=== PATIENT | female | born 1980 | race Hispanic/Latino ===

== ENCOUNTER → 2018-09-17 | Outpatient (CLI) | payer OTHER ==
[2018-09-17 10:24] LABS: ALBUMIN 3.8 g/dL (3.5-5.0); BILIRUBIN,DIRECT 0.1 mg/dL (0.0-0.3); BILIRUBIN,TOTAL 0.3 mg/dL (0.2-1.0); CREATININE 0.7 mg/dL (0.5-1.5); POTASSIUM 5.1 mmol/L (3.5-5.1); TOTAL PROTEIN, SERUM 7.7 g/dL (6.0-8.3)
[2018-09-17 10:48] LABS: BASOPHILS % (AUTO) 0.4 % (0.0-5.0); EOSINOPHILS % (AUTO) 1.4 % (0.0-8.0); HEMATOCRIT 41.8 % (36-48); LYMPHOCYTES % (AUTO) 34.7 % (21.0-51.0); MEAN CORPUSCULAR HEMOGLOBIN 29.6 pg (27.0-33.0); MEAN CORPUSCULAR HGB CONC 33.3 g/dL (32.0-36.0); MEAN CORPUSCULAR VOLUME 88.8 fL (79-99); MONOCYTES % (AUTO) 6.1 % (3.0-13.0); NEUTROPHILS % (AUTO) 57.4 % (40.0-77.0); PLATELET COUNT (AUTO) 351 K/uL (130-400); WHITE BLOOD COUNT (AUTO) 6.4 K/uL (4.8-10.8)
== END | disposition home or self-care (01) ==
LOC: LAB 09:16
PROVIDERS: ATTEND Family Medicine
DX: Z00.00 Encounter for general adult medical examination without abnormal findings (principal)
CPT/HCPCS: 36415; 80048; 80061; 80076; 85025

== ENCOUNTER → 2019-08-30 | Outpatient (CLI) | payer OTHER ==
[2019-08-30 09:31] LABS: BASOPHILS % (AUTO) 0.6 % (0.0-5.0); EOSINOPHILS % (AUTO) 0.8 % (0.0-8.0); LYMPHOCYTES % (AUTO) 29.9 % (21.0-51.0); MEAN CORPUSCULAR HEMOGLOBIN 29.3 pg (27.0-33.0); MEAN CORPUSCULAR HGB CONC 33.1 g/dL (32.0-36.0); MEAN CORPUSCULAR VOLUME 88.6 fL (79-99); MONOCYTES % (AUTO) 5.7 % (3.0-13.0); NEUTROPHILS % (AUTO) 62.7 % (40.0-77.0); PLATELET COUNT (AUTO) 320 K/uL (130-400); RED CELL DISTRIBUTION WIDTH 11.9 % (11.0-15.5); WHITE BLOOD COUNT (AUTO) 6.3 K/uL (4.8-10.8)
[2019-08-30 09:33] LABS: APPEARANCE,URINE Clear (CLEAR); BILIRUBIN,URINE Negative (NEGATIVE); COLOR,URINE Yellow (YELLOW); GLUCOSE, URINE (UA) Negative (NEGATIVE); KETONES,URINE Negative (NEGATIVE); LEUKOCYTE ESTERASE ,URINE Trace (NEGATIVE); NITRATE,URINE Negative (NEGATIVE); OCCULT BLOOD,URINE Negative (NEGATIVE); PH,URINE 5.5 (5.0-8.0); PROTEIN,URINE Negative (NEGATIVE); UROBILINOGEN,URINE 0.2 mg/dL (0.2-1.0)
[2019-08-30 09:46] LABS: BACTERIA,URINE Rare /HPF (None Seen); RBC,URINE 0-1 /HPF (0-1); SQUAMOUS EPITHELIAL CELL,UR Rare /HPF (0-2); WBC,URINE 0-1 /HPF (0-1)
[2019-08-30 09:53] LABS: ALBUMIN 3.6 g/dL (3.5-5.0); BILIRUBIN,TOTAL 0.3 mg/dL (0.2-1.0); CREATININE 0.8 mg/dL (0.5-1.5); POTASSIUM 4.3 mmol/L (3.5-5.1); THYROID STIMULATING HORMONE 0.97 uIU/mL (0.36-3.74); TOTAL PROTEIN, SERUM 7.6 g/dL (6.0-8.3)
[2019-08-30 10:33] LABS: ERYTHROCYTE SEDIMENTATION RATE 25 MM/HR (0-20)
== END | disposition home or self-care (01) ==
LOC: LAB 09:01
PROVIDERS: ATTEND Nurse Practitioner Family
DX: K21.9 Gastro-esophageal reflux disease without esophagitis (principal); R10.9 Unspecified abdominal pain
CPT/HCPCS: 36415; 80053; 80061; 81001; 82150; 82306; 83013; 83690; 84439; 84443; 85025; 85651

== ENCOUNTER 2021-08-17 13:36 | Emergency (ER) | payer OTHER ==
[~2021-08-17] VITALS: Ht 154.9 cm; Wt 74.4 kg
[2021-08-17] MEDS ORDERED: D-ME118S47 PO (15:32)
[2021-08-17] MEDS ORDERED: IBUP-2070 PO (15:32)
[2021-08-17] MEDS ORDERED: OSEL75 PO (15:32)
[2021-08-17] MEDS ORDERED: ACET-3194 PO (15:32)
[2021-08-17 16:20] VITALS: BP 132/88
== END 2021-08-17 16:14 | disposition home or self-care (01) ==
LOC: EDH 13:36
DX: J10.1 Influenza due to other identified influenza virus with other respiratory manifestations (principal); Z20.822 Contact with and (suspected) exposure to COVID-19; Z79.1 Long term (current) use of non-steroidal anti-inflammatories (NSAID)
CPT/HCPCS: 87635; 87804 ×2; 99283; C9803

== ENCOUNTER → 2022-02-11 | Outpatient (CLI) | payer OTHER ==
[~2022-02-11] MED LIST: ACET-3194 PO; D-ME118S47 PO; IBUP-2070 PO; OSEL75 PO
[2022-02-11 10:49] LABS: APPEARANCE,URINE Clear (CLEAR); BILIRUBIN,URINE Negative (NEGATIVE); COLOR,URINE Yellow (YELLOW); GLUCOSE, URINE (UA) Negative (NEGATIVE); KETONES,URINE Negative (NEGATIVE); LEUKOCYTE ESTERASE ,URINE Negative (NEGATIVE); NITRATE,URINE Negative (NEGATIVE); OCCULT BLOOD,URINE Trace (NEGATIVE); PROTEIN,URINE Negative (NEGATIVE); UROBILINOGEN,URINE 0.2 mg/dL (0.2-1.0)
[2022-02-11 11:00] LABS: BASOPHILS % (AUTO) 0.5 % (0.0-5.0); EOSINOPHILS % (AUTO) 1.7 % (0.0-8.0); HEMATOCRIT 40.6 % (36-48); LYMPHOCYTES % (AUTO) 30.4 % (21.0-51.0); MEAN CORPUSCULAR HEMOGLOBIN 29.7 pg (27.0-33.0); MEAN CORPUSCULAR HGB CONC 33.5 g/dL (32.0-36.0); MEAN CORPUSCULAR VOLUME 88.6 fL (79-99); MONOCYTES % (AUTO) 5.9 % (3.0-13.0); NEUTROPHILS % (AUTO) 61.2 % (40.0-77.0); PLATELET COUNT (AUTO) 337 K/uL (130-400); RED BLOOD CELL COUNT(AUTO) 4.58 MIL/uL (4.00-5.50); RED CELL DISTRIBUTION WIDTH 12.3 % (11.0-15.5); WHITE BLOOD COUNT (AUTO) 6.5 K/uL (4.8-10.8)
[2022-02-11 11:01] LABS: BACTERIA,URINE Rare /HPF (None Seen); RBC,URINE 0-1 /HPF (0-1); SQUAMOUS EPITHELIAL CELL,UR Rare /HPF (0-2); WBC,URINE 0-1 /HPF (0-1)
[2022-02-11 11:08] LABS: HEMOGLOBIN A1C 5.5 % (4.0-6.0)
[2022-02-11 11:43] LABS: ALBUMIN 3.5 g/dL (3.5-5.0); BILIRUBIN,TOTAL 0.3 mg/dL (0.2-1.0); CREATININE 0.7 mg/dL (0.5-1.5); THYROID STIMULATING HORMONE 0.73 uIU/mL (0.36-3.74); TOTAL PROTEIN, SERUM 7.1 g/dL (6.0-8.3)
[2022-02-11 11:58] LABS: ERYTHROCYTE SEDIMENTATION RATE 10 MM/HR (0-20)
== END | disposition home or self-care (01) ==
LOC: LAB 09:15
PROVIDERS: ATTEND Nurse Practitioner Family
DX: R63.5 Abnormal weight gain (principal); R53.82 Chronic fatigue, unspecified; N95.1 Menopausal and female climacteric states; Z13.220 Encounter for screening for lipoid disorders; Z13.21 Encounter for screening for nutritional disorder; Z13.29 Encounter for screening for other suspected endocrine disorder; Z13.0 Encounter for screening for diseases of the blood and blood-forming organs and certain disorders involving the immune mechanism
CPT/HCPCS: 36415; 80053; 80061; 81001; 82043; 82306; 82533; 82607; 82626; 82670; 82672; 82677; 82679; 83001; 83002; 83036; 83789; 84144; 84207; 84255; 84270; 84402; 84439; 84443; 84479; 84481; 84482; 84630; 85025; 85651; 86376; 86800

== ENCOUNTER 2022-12-03 10:06 | Emergency (ER) | payer OTHER ==
[~2022-12-03] VITALS: Ht 154.9 cm; Wt 76.2 kg
[2022-12-03 10:35] LABS: BASOPHILS % (AUTO) 0.4 % (0.0-5.0); EOSINOPHILS % (AUTO) 1.2 % (0.0-8.0); HEMATOCRIT 42.3 % (36-48); LYMPHOCYTES % (AUTO) 29.1 % (21.0-51.0); MEAN CORPUSCULAR HEMOGLOBIN 29.9 pg (27.0-33.0); MEAN CORPUSCULAR HGB CONC 33.6 g/dL (32.0-36.0); MEAN CORPUSCULAR VOLUME 89.1 fL (79-99); MONOCYTES % (AUTO) 5.9 % (3.0-13.0); NEUTROPHILS % (AUTO) 62.9 % (40.0-77.0); PLATELET COUNT (AUTO) 344 K/uL (130-400); RED BLOOD CELL COUNT(AUTO) 4.75 MIL/uL (4.00-5.50); RED CELL DISTRIBUTION WIDTH 11.9 % (11.0-15.5); WHITE BLOOD COUNT (AUTO) 7.5 K/uL (4.8-10.8)
[2022-12-03 10:39] LABS: APPEARANCE,URINE CLEAR (CLEAR); BILIRUBIN,URINE NEGATIVE (NEGATIVE); COLOR,URINE COLORLESS (YELLOW); GLUCOSE, URINE (UA) NEGATIVE (NEGATIVE); KETONES,URINE NEGATIVE (NEGATIVE); LEUKOCYTE ESTERASE ,URINE NEGATIVE Leu/uL (NEGATIVE); NITRATE,URINE NEGATIVE (NEGATIVE); OCCULT BLOOD,URINE NEGATIVE (NEGATIVE); PH,URINE 5.5 (5.0-8.0); PROTEIN,URINE NEGATIVE (NEGATIVE); UROBILINOGEN,URINE 0.2 mg/dL (0.2-1.0)
[2022-12-03 10:47] LABS: CREATININE 0.7 mg/dL (0.5-1.5); POTASSIUM 4.4 mmol/L (3.5-5.1)
[2022-12-03 10:52] LABS: ALBUMIN 3.9 g/dL (3.5-5.0); TOTAL PROTEIN, SERUM 7.7 g/dL (6.0-8.3)
[2022-12-03] MEDS ORDERED: MECLIZINE HCL 25 MG TABLET PO ONE (11:30)
[2022-12-03] MEDS ORDERED: MECL-160 PO (12:42)
[2022-12-03 12:56] VITALS: BP 116/71
== END 2022-12-03 13:00 | disposition home or self-care (01) ==
LOC: EDH 10:06
DX: R42 Dizziness and giddiness (principal); R11.0 Nausea; Z79.899 Other long term (current) drug therapy
CPT/HCPCS: 36415; 70450; 70486; 80053; 81003; 85025; 93005

== ENCOUNTER → 2023-04-15 | Outpatient (CLI) | payer OTHER ==
[~2023-04-15] MED LIST changes: +MECL-160 PO
== END | disposition home or self-care (01) ==
LOC: RAH 10:28
PROVIDERS: ATTEND Obstetrics & Gynecology
DX: Z12.31 Encounter for screening mammogram for malignant neoplasm of breast (principal)
CPT/HCPCS: 77067

== ENCOUNTER → 2023-07-31 | Outpatient (CLI) | payer OTHER ==
[~2023-07-31] MED LIST changes: +BROM118S48 PO; -D-ME118S47 PO; -MECL-160 PO; +MECL-302 PO
[2023-07-31 09:58] LABS: BASOPHILS # (AUTO) 0.03 K/uL (0.00-0.20); BASOPHILS % (AUTO) 0.4 % (0.0-5.0); EOSINOPHILS # (AUTO) 0.04 K/uL (0.00-0.70); EOSINOPHILS % (AUTO) 0.6 % (0.0-8.0); HEMATOCRIT 44.5 % (36-48); IMMATURE GRANULOCYTE ABSOLUTE 0.03 K/uL (0-1); LYMPHOCYTES # (AUTO) 1.9 K/uL (1.0-4.8); LYMPHOCYTES % (AUTO) 27.4 % (21.0-51.0); MEAN CORPUSCULAR HEMOGLOBIN 29.6 pg (27.0-33.0); MEAN CORPUSCULAR HGB CONC 32.8 g/dL (32.0-36.0); MEAN CORPUSCULAR VOLUME 90.1 fL (79-99); MONOCYTES # (AUTO) 0.4 K/uL (0.1-1.0); NEUTROPHILS # (AUTO) 4.6 K/uL (1.8-7.7); NEUTROPHILS % (AUTO) 66.2 % (40.0-77.0); PLATELET COUNT (AUTO) 355 K/uL (130-400); RED BLOOD CELL COUNT(AUTO) 4.94 MIL/uL (4.00-5.50); RED CELL DISTRIBUTION WIDTH 12.3 % (11.0-15.5)
[2023-07-31 10:02] LABS: HEMOGLOBIN A1C 5.2 % (4.0-6.0)
[2023-07-31 10:24] LABS: APPEARANCE,URINE CLEAR (CLEAR); BILIRUBIN,URINE NEGATIVE (NEGATIVE); COLOR,URINE LIGHT-YELLOW (YELLOW); GLUCOSE, URINE (UA) NEGATIVE (NEGATIVE); KETONES,URINE NEGATIVE (NEGATIVE); LEUKOCYTE ESTERASE ,URINE NEGATIVE Leu/uL (NEGATIVE); NITRATE,URINE NEGATIVE (NEGATIVE); OCCULT BLOOD,URINE NEGATIVE (NEGATIVE); PROTEIN,URINE NEGATIVE (NEGATIVE); UROBILINOGEN,URINE 0.2 mg/dL (0.2-1.0)
[2023-07-31 10:27] LABS: ALBUMIN 3.8 g/dL (3.5-5.0); BILIRUBIN,TOTAL 0.4 mg/dL (0.2-1.0); CREATININE 0.6 mg/dL (0.5-1.5); THYROID STIMULATING HORMONE 0.72 uIU/mL (0.36-3.74); TOTAL PROTEIN, SERUM 7.6 g/dL (6.0-8.3)
[2023-07-31 10:30] LABS: ADD UA MICROSCOPIC NO
[2023-07-31 11:01] LABS: ERYTHROCYTE SEDIMENTATION RATE 17 MM/HR (0-20)
[2023-08-01 08:13] LABS: INSULIN, RANDOM OR FASTING 16.4 uIU/mL (2.6-24.9)
== END | disposition home or self-care (01) ==
LOC: LAB 08:16
PROVIDERS: ATTEND Nurse Practitioner Family
DX: Z13.220 Encounter for screening for lipoid disorders (principal); Z13.29 Encounter for screening for other suspected endocrine disorder; N92.6 Irregular menstruation, unspecified; K21.9 Gastro-esophageal reflux disease without esophagitis; R53.82 Chronic fatigue, unspecified; E66.01 Morbid (severe) obesity due to excess calories
CPT/HCPCS: 36415; 80053; 80061; 81003; 82306; 83036; 83525; 83789; 84255; 84439; 84443; 84479; 84481; 84482; 84630; 85025; 85651; 86376; 86800

== ENCOUNTER → 2023-09-11 | Outpatient (CLI) | payer OTHER | END | disposition home or self-care (01) | LOC: LAB 09-10 13:20 | PROVIDERS: ATTEND Nurse Practitioner Family | DX: N92.6 Irregular menstruation, unspecified (principal); R53.82 Chronic fatigue, unspecified; R68.82 Decreased libido; R63.5 Abnormal weight gain | CPT/HCPCS: 36415; 82533; 82627; 82670; 82672; 82677; 82679; 83001; 83002; 84144; 84270; 84402; 84403 ==

== ENCOUNTER 2024-06-27 09:54 | Emergency (ER) | payer OTHER ==
[~2024-06-27] VITALS: Ht 154.9 cm; Wt 84.8 kg
[~2024-06-27 09:54] MED LIST changes: +AMOX-427 PO; +PRED20TA3 PO
[2024-06-27] MEDS ORDERED: CLIN-141 PO (10:45)
[2024-06-27] MEDS ORDERED: KETO10TA2 PO (10:45)
--- NOTE | 2024-06-27 10:49 | ERN ---
General Chief Complaint: Earache Stated Complaint: LEFT EAR PAIN Time Seen by MD: 09:54 Time Seen by Midlevel: 09:54 Source: patient History of Present Illness Initial Comments Patient is a 44-year-old female with no significant past medical history presenting with left external ear swelling and pain. Patient was seen in our emergency department two days ago and diagnosed with otitis externa. She was discharged home with Augmentin and prednisolone with little to no relief. Patie nt states she was already taken 48 hours of antibiotics with no improvement in her symptoms. She continues to have pain to her left ear that has now radiated to her left jaw. She specifically denies any hearing loss, fever, chills, difficulty swallowing, or any other symptoms at this time. Allergies: Coded Allergies: No Known Allergies (Unverified Allergy, Unknown, 08/17/21) Home Meds Active Scripts Ketorolac Tromethamine (Ketorolac Tromethamine) 10 Mg Tablet, 10 MG PO BID for 5 Days, #10 TAB Prov:PASCALE ABDI 06/27/24 Clindamycin HCl (Clindamycin HCl) 300 Mg Capsule, 1 CAP PO BID for 10 Days, #20 CAP 0 Refills Prov:PASCALE ABDI 06/27/24 Prednisone (Prednisone) 20 Mg Tablet, 20 MG PO DAILY for 5 Days, #5 TAB Prov:BLU HERNANDEZ MD 06/25/24 Amoxicillin/Potassium Clav (Augmentin Xr 1,000-62.5 Tab) 1,000 Mg-62.5 Mg Tab.er.12h, 1 TAB PO BID for 7 Days, #14 TAB 0 Refills with food Prov:BLU HERNANDEZ MD 06/25/24 Meclizine HCl (Meclizine HCl) 25 Mg Tablet, 25 MG PO TID for dizziness, #20 TAB Prov:GHULAM WESTON MD 12/03/22 Oseltamivir Phosphate (Tamiflu) 75 Mg Cap, 75 MG PO BID for 5 Days, #10 CAP Prov:MARIE GIL 08/17/21 D-Methorphan Hb/P-Epd HCl/Bpm (Bromfed Dm Cough Syrup) 118 Ml Syrup, 10 ML PO TID for 5 Days, #150 ML Prov:MARIE GIL 08/17/21 Ibuprofen (Ibuprofen) 600 Mg Tablet, 600 MG PO Q6H PRN for PAIN, #15 TAB Prov:MARIE GIL 08/17/21 Acetaminophen (Acetaminophen) 650 Mg Tablet.er, 650 MG PO Q4H for 5 Days, #15 TAB Prov:MARIE GIL 08/17/21 Past Medical History Past Medical History: No Pertinent History Past Surgical History: None Social History Social History: Negative ROS Dictation CONSTITUTIONAL: Negative except for HPI HEAD/FACE: Negative except for HPI EENT: Negative except for HPI RESPIRATORY: Negative except for HPI GASTROINTESTINAL/ABDOMINAL: Negative except for HPI GENITOURINARY: Negative except for HPI MUSCULOSKELETAL: Negative except for HPI INTEGUMENTARY: Negative except for HPI NEUROLOGICAL/PSYCH: Negative except for HPI HEMATOLOGIC/LYMPHATIC: Negative except for HPI All Systems Negative, Except as noted above. 13 point review of systems assessed and all negative except for above. Physical Exam Physical Exam Dictation Vital Signs reviewed General Appearance: Alert, oriented x 3, no acute distress, well developed, nourished. Head and Face: non-traumatic. Eyes: PERRL, pink conjunctivas, eyelid no trauma, anterior chamber with arcus senilis. Ears: swelling to the helix portion of the ear however her external ear canal and tympanic membrane are unremarkable. There are no signs of otitis media and otitis externa. There is one lymph node swollen to the left anterior cervical chain. It appears patient may be developing a cellulitis to the external left ear Nose: No discharge, no bleeding. Oropharynx: Mouth normal, tongue pink, pharynx clear,no erythema, tonsils no exudates, no abscesses noted, mucous membrane moist Neck: Supple, non-tender, no thyromegaly, no masses, no JVD, no bruits Breast:Deferred Chest:No tenderness, no crepitus, no paradoxical movement, no retractions Lungs:Clear, well-ventilated, symmetric, no rales, no wheezing, no rhonchi, no stridor, good breath sounds bilaterally Heart: Regular rate, regular rhythm, no murmur, no gallops Vascular: no peripheral edema, Abdomen: Soft, positive bowel sounds, nondistended, no guarding, nontender, no rebound, no masses no hepatomegaly, no splenomegaly, no Hanks's sign, no hernias. Rectal: Deferred Genital: Deferred Neurological: Normal speech, motor function intact, sensory function intact Musculoskeletal: Neck nontender, full range of motion, back nontender, full range of motion, Extremities: nontender, full range of motion Skin: Color pink, dry, no turgor, no rash, no lacerations, no abrasions, no con tusions. Lymphatic: Deferred MDM MDM: Patient is a 44-year-old female with no significant past medical history presenting with left external ear swelling and pain. Patient was seen in our emergency department two days ago and diagnosed with otitis externa. She was discharged home with Augmentin and prednisolone with little to no relief. Patient states she was already taken 48 hours of antibiotics with no improvement in her symptoms. She continues to have pain to her left ear that has now radiated to her left jaw. She specifically denies any hearing loss, fever, chills, difficulty swallowing, or any other symptoms at this time. On physical examination patient has swelling to the helix portion of the ear however her external ear canal and tympanic membrane are unremarkable. There are no signs of otitis media and otitis externa. There is one lymph node swollen to the left anterior cervical chain. It appears patient may be developing a cellulitis to the external left ear. Antibiotic will be changed to clindamycin. Patient was advised to follow up with ENT for symptoms do not improve or return to the ER fo r further evaluation. Patient is agreeable with this plan and all questions have been answered. Differential diagnosis: Otitis media, otitis externa, cellulitis There are no social concerns with this patient. Prescription drug management Prescriptions will include: Clindamycin and ketorolac Medical management and examination interpretation discussions were had by me with other qualified healthcare professionals as indicated for the patient's care. ED Course Orders Procedure Category Date Status Time Ceftriaxone 1g Vial PHA 06/27/24 Complete (Rocephine 1g Inj) 10:30 Current Medications Medications (Trade) Dose Ordered Sig/[place] Route PRN Reason Start Time Stop Time Status Last Admin Dose Admin Ceftriaxone Sodium (ROCEphine 1G INJ) 1 gm ONCE ONCE IM 06/27/24 10:30 06/27/24 10:31 DC Vital Signs Date Time Temp Pulse Resp B/P (MAP) Pulse Ox O2 Delivery O2 Flow Rate FiO2 06/27/24 09:54 99.1 79 16 112/8 96 Room Air DX & DISP Disposition: Discharge Departure Impression: Primary Impression: Swelling of left external ear Additional Impression: Cellulitis of external ear Condition: Stable Scripts Ketorolac Tromethamine (Ketorolac Tromethamine) 10 Mg Tablet 10 MG PO BID for 5 Days, #10 TAB Prov: PASCALE ABDI 06/27/24 Clindamycin HCl (Clindamycin HCl) 300 Mg Capsule 1 CAP PO BID for 10 Days, #20 CAP 0 Refills Prov: PASCALE ABDI 06/27/24 Additional Instructions: Your physical exam is remarkable for swelling to the external left ear. This may be related to your recent change in piercing. It also appears your lymph nodes are reactive most likely to an infection. I will give you a prescription for clindamycin and ketorolac for pain. Her symptoms do not improve after this round of antibiotics he will need to see an ENT specialist. I have given you a referral to Dr. Lozano. You may finish the steroids you were previously prescribed. This should improve your swelling. If you develop any new or worsening symptoms please report to the ER for further evaluation. Referrals: JESSICA STUART (PCP) KENZIE LOZANO III, MD Time of Disposition: 10:44 I have reviewed the case, and I agree with, Diagnosis and Plan I performed the substantive portion of the visit. I have reviewed and personally made and approve the management plan that is documented in the note by myself or the CM. I acknowledge for responsibility for the patient's m anagement plan. PASCALE ABDI Jun 27, 2024 10:49
[2024-06-27] MEDS: cefTRIAXone 1G VIAL IM ONE (11:07)
[2024-06-27 11:09] VITALS: BP 115/79; PULSE 78; RESP 16; TEMP 99.1; O2SAT 97
[2024-06-27] MEDS: LIDOCAINE HCL 1% 20 ML VIAL ONE (11:27)
== END 2024-06-27 11:32 | disposition home or self-care (01) ==
LOC: EDH 09:54
DX: H60.12 Cellulitis of left external ear (principal); H93.8X2 Other specified disorders of left ear; Z79.52 Long term (current) use of systemic steroids; Z79.899 Other long term (current) drug therapy
CPT/HCPCS: 99283; 96372; J0696

== ENCOUNTER → 2024-12-16 | Outpatient (CLI) | payer OTHER ==
[~2024-12-16] MED LIST changes: +CLIN-141 PO; +KETO10TA2 PO
[2024-12-16 09:09] LABS: BASOPHILS # (AUTO) 0.04 K/uL (0.00-0.20); BASOPHILS % (AUTO) 0.5 % (0.0-5.0); EOSINOPHILS # (AUTO) 0.09 K/uL (0.00-0.70); EOSINOPHILS % (AUTO) 1.2 % (0.0-8.0); IMMATURE GRANULOCYTE ABSOLUTE 0.03 K/uL (0-1); LYMPHOCYTES % (AUTO) 26.7 % (21.0-51.0); MEAN CORPUSCULAR HEMOGLOBIN 29.9 pg (27.0-33.0); MEAN CORPUSCULAR HGB CONC 33.8 g/dL (32.0-36.0); MEAN CORPUSCULAR VOLUME 88.5 fL (79-99); MONOCYTES # (AUTO) 0.4 K/uL (0.1-1.0); MONOCYTES % (AUTO) 4.8 % (3.0-13.0); NEUTROPHILS # (AUTO) 4.8 K/uL (1.8-7.7); NEUTROPHILS % (AUTO) 66.4 % (40.0-77.0); PLATELET COUNT (AUTO) 324 K/uL (130-400); RED BLOOD CELL COUNT(AUTO) 4.52 MIL/uL (4.00-5.50); RED CELL DISTRIBUTION WIDTH 12.3 % (11.0-15.5); WHITE BLOOD COUNT (AUTO) 7.3 K/uL (4.8-10.8)
[2024-12-16 09:21] LABS: HEMOGLOBIN A1C 5.3 % (4.0-6.0)
[2024-12-16 09:25] LABS: THYROID STIMULATING HORMONE 0.9 uIU/mL (0.36-3.74)
== END | disposition home or self-care (01) ==
LOC: LAB 08:34
PROVIDERS: ATTEND Obstetrics & Gynecology
DX: N95.9 Unspecified menopausal and perimenopausal disorder (principal)
CPT/HCPCS: 36415; 82306; 82533; 82627; 82670; 82672; 83001; 83002; 83036; 84144; 84146; 84402; 84403; 84439; 84443; 84480; 85025; 86038; 86215; 86235; 86376

== ENCOUNTER → 2025-02-23 | Outpatient (CLI) | payer OTHER | END | disposition home or self-care (01) | LOC: RAH 12:53 | PROVIDERS: ATTEND Obstetrics & Gynecology | DX: Z12.31 Encounter for screening mammogram for malignant neoplasm of breast (principal) | CPT/HCPCS: 77067 ==